=== PATIENT | female | born 1935 | race Caucasian/White ===

== ENCOUNTER → 2016-10-17 13:51 | Outpatient (CLI) | payer MEDICARE, OTHER ==
[2010-12-07 06:17] VITALS: BMI 27.0
== END | disposition home or self-care (01) ==
LOC: D.MAMMO 09:30
DX: Z12.31 Encounter for screening mammogram for malignant neoplasm of breast (principal)

== ENCOUNTER 2017-08-02 19:16 | Inpatient (IN) | payer MEDICARE, OTHER ==
[~2017-08-02] VITALS: Ht 165.1 cm; Wt 75.0 kg
--- NOTE | ~2017-08-02 | EC ---
PATIENT:GIL DAVIS DATE OF SERVICE: 08/02/17 SEX: F MEDICAL RECORD: [id number] DATE OF : [birth year] LOCATION:[facility] AGE OF PATIENT: 81 ADMISSION DATE: 08/02/17 REFERRING PHYSICIAN: INTERPRETING PHYSICIAN: CHARLES KEYS MD ECHOCARDIOGRAM REPORT ECHO CHARGES 4 ECHO COMPLETE Date: 08/03 CLINICAL DIAGNOSIS: CVA HX OF AVR ECHOCARDIOGRAPHIC MEASUREMENTS (adult normal given) AC root (d.<3.7cm) 2.5 cm LV Septum d (<1.2 cm> 1.2 cm Valve Excursion 1.2 cm LV Septum (systole) 1.4 cm Left Atria (s.<4.0cm> 3.1 cm LVPW d(<1.2cm) 1.4 cm RV (d.<2.3cm) 3.1 cm LVPW (sytole) 1.6 cm LV diastole(<5.6CM) 4.2 cm MV E-F(>70mm/sec) cm LV systole 3.1 cm LVOT Diameter 1.5 cm MV exc.(>10mm) cm Est.ejection fraction (50-75%) % DOPPLER: LVIT cm/sec A 116 cm/sec E 79.0 cm/sec LA cm/sec RVSP 28 mmHg LVOT 132 cm/sec AOP1/2T m/s Asc. Ao 222 cm/sec RVOT cm/sec RA cm/sec PA cm/sec AV Gradient Peak 19.79mmHg AV Mean 11.31mmHg AV Area 1.2 cm MV Gradient Peak 6.81 mmHg MV Mean 2.34 mmHg MV Area cm COMMENTS: Tube Dispatcher: 2 CHANDLER CARLOS Hot Roll Inspector: 3 Dr. Mccann TAPE# PACS Pericardial Effusion N DATE OF SERVICE: Adequate 2-D echo, color flow and spectral Doppler, and M-mode. No LVH. LV internal dimensions are normal. Wall motion is normal. EF is greater than or equal to 55%. Prosthetic tissue aortic valve is noted with acceptable Doppler velocity. No significant AI. Left atrium is normal. Mitral valve shows no prolapse. Trace MR. Right-sided chambers grossly normal. Trace TR. TRANSINT:[id number] Voice Confirmation ID: [id number] DOCUMENT ID: [id number] ECHOCARDIOGRAM REPORT [id number] GIL DAVIS,CHARLES Ni MD at 1214 CC: [id number] DICTATION DATE: 08/03/[address] JUDGE: 08/03/17 1653 ADM IN [place] [id number] [place] [address]
[2017-08-02 20:02] LABS: BASOPHILS 0.1 % (0-2); EOSINOPHILS 0.1 % (0-7); HEMATOCRIT 41.7 % (36.0-48.0); HEMOGLOBIN 14.5 g/dL (12-16); IMMATURE GRANULOCYTES 0.3 % (0-5); LYMPHOCYTES 8.7 % (15-50); MCH 31.9 pg (26.0-34.0); MCHC 34.8 g/dL (31.0-37.0); MCV 91.9 fL (80.0-100.0); MONOCYTES 8.4 % (2-11); NEUTROPHILS 82.4 % (40-80); RBC 4.54 10x6/uL (4.00-5.40); RDW 13.3 % (11.5-14.5); WBC 10.1 10x3/uL (4.8-10.8)
[2017-08-02 20:12] LABS: PLATELET COUNT 116 10x3/uL (130-400)
[2017-08-02 20:25] LABS: ALBUMIN 3.5 g/dL (3.4-5.0); ALKALINE PHOSPHATASE 60 U/L (46-116); ALT (SGPT) 48 U/L (10-68); BILIRUBIN - TOTAL 0.58 mg/dL (0.2-1.3); CALC OSMOLALITY 274 mosm/kg (275-300); CALCIUM 10.2 mg/dL (8.5-10.1); CARBON DIOXIDE 25.2 mmol/L (21.0-32.0); CHLORIDE - SERUM 101 mmol/L (98-107); CREATININE - SERUM 0.8 mg/dL (0.6-1.3); POTASSIUM - SERUM 3.5 mmol/L (3.5-5.1); PROTEIN - SERUM 7.5 g/dL (6.4-8.2); SODIUM 136 mmol/L (136-145); UREA NITROGEN 18 mg/dL (7-18); eGFR NON AFRICAN AMERICAN 73 mL/min (90-120)
[2017-08-02 20:28] LABS: GLUCOSE 120 mg/dL (74-106)
[2017-08-02 20:29] LABS: APPEARANCE HAZY (CLEAR); BILIRUBIN NEGATIVE (NEGATIVE); COLOR DK YELLOW (YELLOW); GLUCOSE NEGATIVE (NEGATIVE); KETONE LARGE mg/dL (NEGATIVE); NITRITE NEGATIVE (NEGATIVE); PROTEIN 1+ mg/dL (NEGATIVE); UROBILINOGEN NORMAL (NORMAL)
[2017-08-02 20:42] LABS: RED CELLS - URINE 0-5 /hpf (0-5)
[2017-08-02 20:43] LABS: BACTERIA MANY /hpf (NONE SEEN); EPITHELIAL CELLS 0-5 /hpf (0-5)
[2017-08-02 20:47] LABS: CREATINE KINASE 2254 UL (21-215); TROPONIN-I < 0.017 ng/mL (0.000-0.060)
[2017-08-02 20:48] LABS: CKMB 8.2 U/L (0.0-3.6)
[2017-08-02 20:49] LABS: KETONE - SERUM NEGATIVE (NEGATIVE)
[2017-08-03] MEDS ORDERED: GABAPENTIN100 MG PO (01:29)
[2017-08-03] MEDS ORDERED: MULTIPLE VITAMI1 TA1 PO (01:31)
[2017-08-03] MEDS ORDERED: MYRBETRIQ25 MG PO (01:31)
[2017-08-03 02:14] VITALS: BP 144/68; Ht 165.1 cm; Wt 75.0 kg
[2017-08-03] MEDS ORDERED: VITAMIN D5000 UNIT PO (04:22)
[2017-08-03] MEDS ORDERED: POTASSIUM99 M1 PO (04:22)
[2017-08-03] MEDS ORDERED: VITAMIN C WITH500 M1 PO (04:22)
[2017-08-03] MEDS ORDERED: L-LYSINE500 M1 PO (04:24)
[2017-08-03] MEDS ORDERED: NIASPAN500 MG PO (04:24)
[2017-08-03] MEDS ORDERED: VITAMIN E400 UNI2 PO (04:24)
[2017-08-03] MEDS ORDERED: CO Q-10200 MG PO (04:25)
[2017-08-03] MEDS ORDERED: VITAMIN B-122500 MCG PO (04:25)
[2017-08-03] MEDS ORDERED: FISH OIL 1,0001 CA1 PO (04:25)
[2017-08-03] MEDS ORDERED: BAYER CHEWABLE81 MG PO (04:26)
[2017-08-03 04:30] VITALS: BP 144/88
[2017-08-03 06:20] LABS: BASOPHILS 0.2 % (0-2); EOSINOPHILS 0 % (0-7); HEMATOCRIT 38.3 % (36.0-48.0); HEMOGLOBIN 12.8 g/dL (12-16); IMMATURE GRANULOCYTES 0.2 % (0-5); LYMPHOCYTES 10.6 % (15-50); MCH 31.2 pg (26.0-34.0); MCHC 33.4 g/dL (31.0-37.0); MCV 93.4 fL (80.0-100.0); MEAN PLATELET VOLUME 9.3 fL (7.4-10.4); PLATELET COUNT 112 10x3/uL (130-400); RDW 13.2 % (11.5-14.5); WBC 8.9 10x3/uL (4.8-10.8)
[2017-08-03 06:53] LABS: CALC OSMOLALITY 280 mosm/kg (275-300); CALCIUM 8.8 mg/dL (8.5-10.1); CARBON DIOXIDE 23.3 mmol/L (21.0-32.0); CHLORIDE - SERUM 104 mmol/L (98-107); CKMB 3.8 U/L (0.0-3.6); CREATININE - SERUM 0.7 mg/dL (0.6-1.3); GLUCOSE 100 mg/dL (74-106); POTASSIUM - SERUM 3.6 mmol/L (3.5-5.1); SODIUM 140 mmol/L (136-145); TROPONIN-I < 0.017 ng/mL (0.000-0.060); UREA NITROGEN 17 mg/dL (7-18); eGFR NON AFRICAN AMERICAN 85 mL/min (90-120)
[2017-08-03 07:04] LABS: CREATINE KINASE 1544 UL (21-215)
[2017-08-03 09:52] VITALS: BP 111/51
[2017-08-03 13:31] VITALS: BP 136/67
[2017-08-03 13:31] LABS: CHOL - HDL RATIO 2.3 ratio (2.3-4.1); LDL-HDL RATIO 1.1 ratio (1.5-3.5)
[2017-08-03 18:09] VITALS: BP 147/51
[2017-08-03 21:12] VITALS: BP 139/69
[2017-08-04 04:01] VITALS: BP 123/63
[2017-08-04 07:08] LABS: BASOPHILS 0.3 % (0-2); EOSINOPHILS 0.5 % (0-7); HEMOGLOBIN 12.4 g/dL (12-16); MCH 31.5 pg (26.0-34.0); MCHC 34.4 g/dL (31.0-37.0); MCV 91.4 fL (80.0-100.0); MEAN PLATELET VOLUME 9.3 fL (7.4-10.4); NEUTROPHILS 71.2 % (40-80); PLATELET COUNT 105 10x3/uL (130-400); RBC 3.94 10x6/uL (4.00-5.40); RDW 13.4 % (11.5-14.5); WBC 5.9 10x3/uL (4.8-10.8)
[2017-08-04 07:31] LABS: ALKALINE PHOSPHATASE 47 U/L (46-116); ALT (SGPT) 42 U/L (10-68); BILIRUBIN - TOTAL 0.41 mg/dL (0.2-1.3); CALCIUM 8.7 mg/dL (8.5-10.1); CARBON DIOXIDE 24.2 mmol/L (21.0-32.0); CHLORIDE - SERUM 105 mmol/L (98-107); GLUCOSE 93 mg/dL (74-106); POTASSIUM - SERUM 3.4 mmol/L (3.5-5.1); SODIUM 139 mmol/L (136-145)
[2017-08-04 07:33] LABS: ALBUMIN 2.5 g/dL (3.4-5.0); CALC OSMOLALITY 276 mosm/kg (275-300); CREATININE - SERUM 0.5 mg/dL (0.6-1.3); PROTEIN - SERUM 5.4 g/dL (6.4-8.2); UREA NITROGEN 9 mg/dL (7-18); eGFR NON AFRICAN AMERICAN > 90 mL/min (90-120)
[2017-08-04 08:31] VITALS: BP 149/69
[2017-08-04 12:32] VITALS: BP 127/61
[2017-08-04 16:13] VITALS: BP 138/66
[2017-08-04 22:35] VITALS: BP 137/113
[2017-08-05 05:27] LABS: BASOPHILS 0.4 % (0-2); EOSINOPHILS 3.7 % (0-7); HEMATOCRIT 36.7 % (36.0-48.0); HEMOGLOBIN 12.5 g/dL (12-16); IMMATURE GRANULOCYTES 0.2 % (0-5); MCH 31.1 pg (26.0-34.0); MCHC 34.1 g/dL (31.0-37.0); MCV 91.3 fL (80.0-100.0); MEAN PLATELET VOLUME 9.3 fL (7.4-10.4); MONOCYTES 17.9 % (2-11); NEUTROPHILS 51.8 % (40-80); PLATELET COUNT 120 10x3/uL (130-400); RBC 4.02 10x6/uL (4.00-5.40); RDW 13.4 % (11.5-14.5); WBC 5.2 10x3/uL (4.8-10.8)
[2017-08-05 05:55] LABS: ALBUMIN 2.4 g/dL (3.4-5.0); ALKALINE PHOSPHATASE 50 U/L (46-116); ALT (SGPT) 47 U/L (10-68); CALC OSMOLALITY 281 mosm/kg (275-300); CARBON DIOXIDE 24.9 mmol/L (21.0-32.0); CHLORIDE - SERUM 108 mmol/L (98-107); CREATININE - SERUM 0.5 mg/dL (0.6-1.3); GLUCOSE 102 mg/dL (74-106); POTASSIUM - SERUM 3.4 mmol/L (3.5-5.1); PROTEIN - SERUM 5.8 g/dL (6.4-8.2); SODIUM 142 mmol/L (136-145); UREA NITROGEN 9 mg/dL (7-18); eGFR NON AFRICAN AMERICAN > 90 mL/min (90-120)
[2017-08-05 07:10] VITALS: BP 137/65
[2017-08-05 08:02] VITALS: BP 133/70
[2017-08-05 11:43] LABS: ALBUMIN 2.5 g/dL (3.4-5.0); ALKALINE PHOSPHATASE 49 U/L (46-116); ALT (SGPT) 50 U/L (10-68); CALC OSMOLALITY 277 mosm/kg (275-300); CALCIUM 8.8 mg/dL (8.5-10.1); CARBON DIOXIDE 27.1 mmol/L (21.0-32.0); CHLORIDE - SERUM 105 mmol/L (98-107); CREATININE - SERUM 0.5 mg/dL (0.6-1.3); GLUCOSE 111 mg/dL (74-106); POTASSIUM - SERUM 3.9 mmol/L (3.5-5.1); PROTEIN - SERUM 5.5 g/dL (6.4-8.2); SODIUM 139 mmol/L (136-145); UREA NITROGEN 10 mg/dL (7-18); eGFR NON AFRICAN AMERICAN > 90 mL/min (90-120)
[2017-08-05 12:14] VITALS: BP 132/64
[2017-08-05 15:42] VITALS: BP 132/70
[2017-08-05 20:43] VITALS: BP 128/66
[2017-08-06 00:10] VITALS: BP 131/75
[2017-08-06 05:12] VITALS: BP 140/75
[2017-08-06 06:07] LABS: BASOPHILS 0.3 % (0-2); EOSINOPHILS 4.2 % (0-7); HEMATOCRIT 36.3 % (36.0-48.0); HEMOGLOBIN 12.4 g/dL (12-16); IMMATURE GRANULOCYTES 0.1 % (0-5); LYMPHOCYTES 19.3 % (15-50); MCH 31.2 pg (26.0-34.0); MCHC 34.2 g/dL (31.0-37.0); MCV 91.2 fL (80.0-100.0); MONOCYTES 18.3 % (2-11); NEUTROPHILS 57.8 % (40-80); PLATELET COUNT 137 10x3/uL (130-400); RBC 3.98 10x6/uL (4.00-5.40); RDW 13.6 % (11.5-14.5)
[2017-08-06 06:11] LABS: WBC 6.7 10x3/uL (4.8-10.8)
[2017-08-06 06:33] LABS: ALBUMIN 2.4 g/dL (3.4-5.0); ALKALINE PHOSPHATASE 51 U/L (46-116); ALT (SGPT) 44 U/L (10-68); CALC OSMOLALITY 278 mosm/kg (275-300); CALCIUM 9.2 mg/dL (8.5-10.1); CARBON DIOXIDE 26.5 mmol/L (21.0-32.0); CHLORIDE - SERUM 107 mmol/L (98-107); CREATININE - SERUM 0.6 mg/dL (0.6-1.3); GLUCOSE 110 mg/dL (74-106); PROTEIN - SERUM 5.8 g/dL (6.4-8.2); SODIUM 140 mmol/L (136-145); UREA NITROGEN 11 mg/dL (7-18); eGFR NON AFRICAN AMERICAN > 90 mL/min (90-120)
[2017-08-06 09:49] VITALS: BP 122/47
[2017-08-06 14:56] VITALS: BP 138/65
[2017-08-06 17:32] VITALS: BP 163/61
[2017-08-06 20:38] VITALS: BP 136/52
[2017-08-07 04:06] VITALS: BP 147/66
[2017-08-07 06:06] LABS: BASOPHILS 0.3 % (0-2); EOSINOPHILS 5.5 % (0-7); HEMATOCRIT 37.4 % (36.0-48.0); HEMOGLOBIN 12.7 g/dL (12-16); IMMATURE GRANULOCYTES 0.3 % (0-5); LYMPHOCYTES 25.6 % (15-50); MCH 31.1 pg (26.0-34.0); MCV 91.4 fL (80.0-100.0); MEAN PLATELET VOLUME 9.1 fL (7.4-10.4); MONOCYTES 14.9 % (2-11); NEUTROPHILS 53.4 % (40-80); PLATELET COUNT 163 10x3/uL (130-400); RBC 4.09 10x6/uL (4.00-5.40); RDW 13.3 % (11.5-14.5); WBC 6.2 10x3/uL (4.8-10.8)
[2017-08-07 06:44] LABS: ALBUMIN 2.5 g/dL (3.4-5.0); ALKALINE PHOSPHATASE 54 U/L (46-116); ALT (SGPT) 42 U/L (10-68); CALC OSMOLALITY 280 mosm/kg (275-300); CALCIUM 9.5 mg/dL (8.5-10.1); CHLORIDE - SERUM 107 mmol/L (98-107); CREATININE - SERUM 0.6 mg/dL (0.6-1.3); GLUCOSE 107 mg/dL (74-106); POTASSIUM - SERUM 3.8 mmol/L (3.5-5.1); PROTEIN - SERUM 6.1 g/dL (6.4-8.2); SODIUM 141 mmol/L (136-145); UREA NITROGEN 12 mg/dL (7-18); eGFR NON AFRICAN AMERICAN > 90 mL/min (90-120)
[2017-08-07 09:02] VITALS: BP 130/56
[2017-08-07 13:15] VITALS: BP 125/63
[2017-08-07 17:08] VITALS: BP 117/62
== END 2017-08-07 20:00 | DRG 65 ==
LOC: D.ER 19:16 → D.MS 23:57
PROVIDERS: Emergency Medicine; Family Medicine; Internal Medicine Nephrology
DX: I63.9 Cerebral infarction, unspecified (principal); N39.0 Urinary tract infection, site not specified; M48.54XA Collapsed vertebra, not elsewhere classified, thoracic region, initial encounter for fracture; I25.10 Atherosclerotic heart disease of native coronary artery without angina pectoris; E78.5 Hyperlipidemia, unspecified; F41.9 Anxiety disorder, unspecified; G89.29 Other chronic pain; M54.9 Dorsalgia, unspecified; R29.6 Repeated falls; M81.0 Age-related osteoporosis without current pathological fracture; I07.1 Rheumatic tricuspid insufficiency

== ENCOUNTER 2017-08-07 14:44 | Inpatient (IN) | payer MEDICARE, OTHER ==
[~2017-08-07] VITALS: Ht 165.1 cm; Wt 76.2 kg
--- NOTE | ~2017-08-07 | RHP ---
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 HISTORY OF PRESENT ILLNESS: The patient is a 81-year-old female patient with an ischemic CVA right hemispheric lesion. She admitted from the ER on 08/02/2017 when she presented with history of weakness of the lower extremity and falling. She had fallen on the floor several times at home and had to call the neighbor to get her up. She had no precipitating event. She denied headaches, syncope, dizziness, chest pain, palpitation, dyspnea, cough, phlegm, nausea, vomiting, fever or chills. No genitourinary complaints. No change in her bowel habits. She has been on a detailed diet for 2 weeks and no carbohydrates. She has also been drinking lots of water. CT of her head showed ischemia in large portion of the right-sided cerebral hemisphere. She was admitted with CVA. She had a past medical history of hyperlipidemia, aortic stenosis. She has had a valve replacement, colonic polyps, urinary incontinence, chronic back pain, osteoporosis, vitamin D deficiency. She was independent with ADLs and mobility without aid. She lives alone in [place] and drove to and from all of her appointments. Currently, she is moderate to max assist with ADLs and mobility. She has weakness in both of her lower extremities, has poor balance without academic affairs assistant. She wants to return home at her prior level of functioning or better if possible. Comorbidities in this patient include UTI. She has had a history of compression fractures. She has a history of hypokalemia, lower extremity edema, generalized weakness, coronary artery disease, hyperlipidemia, osteoporosis, anxiety, depression. PAST MEDICAL HISTORY: Significant for hyperlipidemia, aortic stenosis, colon polyps, urinary incontinence, chronic pain, osteoporosis, vitamin D deficiency, and anxiety. PAST SURGICAL HISTORY: Includes cholecystectomy, coronary artery bypass grafting, hysterectomy, valve replacement. She has had a bladder repair. She broke her jaw. Percutaneous kyphoplasty, tonsillectomy and spine drainage by Dr. Hurtado of a cyst. ALLERGIES: No known drug allergies. MEDICATIONS: Current medications include vitamin E daily. She is on potassium 99 mg daily, multivitamin daily, omega-3 daily, B12 2500 mcg daily, ascorbic acid 500 mg daily, vitamin D 5000 units daily, aspirin 162 mg daily, niacin 500 mg at bedtime, Neurontin 100 mg t.i.d. and polyethylene glycol 17 grams in 8 ounces of water daily. HABITS: No alcohol or tobacco use. HISTORY AND PHYSICAL [id number] GIL DAVIS FAMILY HISTORY: Noncontributory. SOCIAL HISTORY: The patient hopes to return back home and get back to her prior level of functioning. REVIEW OF SYSTEMS: GENERAL: Does complain of weakness and fatigue. HEENT: Denies cold, cough, or congestion. CARDIOVASCULAR: Denies chest pain. PHYSICAL EXAMINATION: VITAL SIGNS: Stable, afebrile. GENERAL: Elderly female, in no acute distress, alert upon exam. HEENT: Normocephalic and atraumatic. Mucosa moist. NECK: Supple. No lymphadenopathy. LUNGS: Clear at this time. HEART: Regular rate and rhythm. She does have a murmur. ABDOMEN: Benign. EXTREMITIES: No clubbing, cyanosis or edema. NEUROLOGIC: She does have noted weakness on the right and on the left consistent with a right hemispheric CVA. LABORATORY DATA: Admit white count of 7.7, H&H of 13 and 38, and platelet count was noted to be 179. Her sodium is 143, potassium 4.2, BUN and creatinine of 12 and 0.6 and blood sugar is noted to be 108. ASSESSMENT: This is a 81-year-old female patient admitted to the rehab with a working diagnosis of CVA involving the left side of her body. The patient has potential to make improvement. We instituted the following multidisciplinary therapies include, but not limited to physical, occupational, respiratory, speech, nutritional services, prosthetics and orthotics. Given her complex medical condition and risk for more complications, rehabilitation services cannot be provided at a lower level of care such a skilled nurse facility. PLAN: 1. Admit to [facility] rehab for intensive inpatient therapy to include the following disciplines: A. Physical therapy to improve gait, all transfer skills and bed mobility to a modified independent level. B. Occupational therapy to improve activities of daily living to a modified independent level. C. Case management to assist with discharge planning and placement options. D. Nutrition to assist with nutritional needs. E. Rehabilitation nursing to assist in monitoring the patient's underlying medical conditions and to assist with any type bowel or bladder management. 2. The patient's current medication and medical care will be continued. 3. The patient will be placed on standard fall precautions. 4. The patient's estimated length of stay is approximately 7-10 days. 5. I am going to go ahead and check vitamin D levels on her and I will treat this appropriately. TRANSINT:[id number] Voice Confirmation ID: [id number] DOCUMENT ID: [id number] ARAMIS notes whether there has been none or any medical/functional HISTORY AND PHYSICAL [id number] GIL DAVIS change since admission: - No change since prescreen. ARAMIS attests patient continues to be appropriate for IRF: - Continues to be appropriate. MABLE TORRES MD at 1315 CC: [id number] DICTATION DATE: 08/08/17 0844 STUDIO ENGINEER: 08/08/17 0955 ADM IN [facility] [address] [place] [address]
[~2017-08-07 14:44] MED LIST: BAYER CHEWABLE81 MG PO; CO Q-10200 MG PO; FISH OIL 1,0001 CA1 PO; GABAPENTIN100 MG PO; L-LYSINE500 M1 PO; MULTIPLE VITAMI1 TA1 PO; MYRBETRIQ25 MG PO; NIASPAN500 MG PO; POTASSIUM99 M1 PO; VITAMIN B-122500 MCG PO; VITAMIN C WITH500 M1 PO; VITAMIN D5000 UNIT PO; VITAMIN E400 UNI2 PO
[2017-08-07 20:17] VITALS: BP 117/62; BMI 27.9
[2017-08-08 07:31] LABS: BASOPHILS 0.4 % (0-2); EOSINOPHILS 4.2 % (0-7); HEMATOCRIT 38.5 % (36.0-48.0); IMMATURE GRANULOCYTES 0.7 % (0-5); MCH 31.3 pg (26.0-34.0); MCHC 33.8 g/dL (31.0-37.0); MCV 92.5 fL (80.0-100.0); MEAN PLATELET VOLUME 8.8 fL (7.4-10.4); NEUTROPHILS 48.7 % (40-80); PLATELET COUNT 179 10x3/uL (130-400); RBC 4.16 10x6/uL (4.00-5.40); RDW 13.4 % (11.5-14.5); WBC 7.7 10x3/uL (4.8-10.8)
[2017-08-08 07:41] LABS: CALC OSMOLALITY 285 mosm/kg (275-300); CALCIUM 9.6 mg/dL (8.5-10.1); CARBON DIOXIDE 30.8 mmol/L (21.0-32.0); CHLORIDE - SERUM 106 mmol/L (98-107); CREATININE - SERUM 0.6 mg/dL (0.6-1.3); GLUCOSE 108 mg/dL (74-106); POTASSIUM - SERUM 4.2 mmol/L (3.5-5.1); SODIUM 143 mmol/L (136-145); UREA NITROGEN 12 mg/dL (7-18); eGFR NON AFRICAN AMERICAN > 90 mL/min (90-120)
[2017-08-08 08:20] VITALS: BP 127/61
[2017-08-08 11:48] VITALS: Ht 165.1 cm; Wt 76.2 kg
[2017-08-08 19:00] VITALS: BP 120/53
[2017-08-09 07:59] VITALS: BP 113/60
[2017-08-09 19:00] VITALS: BP 116/47
[2017-08-10 06:31] LABS: CALC OSMOLALITY 281 mosm/kg (275-300); CALCIUM 9.5 mg/dL (8.5-10.1); CHLORIDE - SERUM 107 mmol/L (98-107); CREATININE - SERUM 0.7 mg/dL (0.6-1.3); GLUCOSE 114 mg/dL (74-106); POTASSIUM - SERUM 4.1 mmol/L (3.5-5.1); SODIUM 141 mmol/L (136-145); UREA NITROGEN 13 mg/dL (7-18); eGFR NON AFRICAN AMERICAN 85 mL/min (90-120)
[2017-08-10 07:16] LABS: BASOPHILS 0.5 % (0-2); EOSINOPHILS 5.6 % (0-7); HEMATOCRIT 39.1 % (36.0-48.0); HEMOGLOBIN 12.9 g/dL (12-16); IMMATURE GRANULOCYTES 1.1 % (0-5); LYMPHOCYTES 40.6 % (15-50); MCH 30.8 pg (26.0-34.0); MCV 93.3 fL (80.0-100.0); MONOCYTES 9.1 % (2-11); NEUTROPHILS 43.1 % (40-80); PLATELET COUNT 261 10x3/uL (130-400); RBC 4.19 10x6/uL (4.00-5.40); RDW 13.5 % (11.5-14.5); WBC 6.3 10x3/uL (4.8-10.8)
[2017-08-10 08:36] VITALS: BP 117/56
[2017-08-10 19:00] VITALS: BP 120/56
[2017-08-11 12:07] VITALS: BP 110/58
[2017-08-11 19:15] VITALS: BP 111/57
[2017-08-12 07:58] VITALS: BP 125/67
[2017-08-12 20:40] VITALS: BP 106/51
[2017-08-13 05:22] LABS: BASOPHILS 0.5 % (0-2); EOSINOPHILS 3.9 % (0-7); HEMATOCRIT 37.4 % (36.0-48.0); HEMOGLOBIN 12.2 g/dL (12-16); IMMATURE GRANULOCYTES 0.5 % (0-5); LYMPHOCYTES 37.8 % (15-50); MCH 30.8 pg (26.0-34.0); MCHC 32.6 g/dL (31.0-37.0); MCV 94.4 fL (80.0-100.0); MEAN PLATELET VOLUME 8.5 fL (7.4-10.4); MONOCYTES 8.4 % (2-11); NEUTROPHILS 48.9 % (40-80); PLATELET COUNT 216 10x3/uL (130-400); RBC 3.96 10x6/uL (4.00-5.40); RDW 13.5 % (11.5-14.5); WBC 6.4 10x3/uL (4.8-10.8)
[2017-08-13 05:36] LABS: CALC OSMOLALITY 283 mosm/kg (275-300); CALCIUM 9.4 mg/dL (8.5-10.1); CARBON DIOXIDE 29.7 mmol/L (21.0-32.0); CHLORIDE - SERUM 106 mmol/L (98-107); CREATININE - SERUM 0.6 mg/dL (0.6-1.3); GLUCOSE 119 mg/dL (74-106); POTASSIUM - SERUM 4.3 mmol/L (3.5-5.1); SODIUM 141 mmol/L (136-145); UREA NITROGEN 18 mg/dL (7-18); eGFR NON AFRICAN AMERICAN > 90 mL/min (90-120)
[2017-08-13 07:45] VITALS: BP 124/64
[2017-08-13 19:00] VITALS: BP 117/51
[2017-08-14 08:05] VITALS: BP 124/56
[2017-08-14 19:00] VITALS: BP 123/55
[2017-08-15 07:30] LABS: BASOPHILS 0.5 % (0-2); EOSINOPHILS 3.8 % (0-7); HEMATOCRIT 41.9 % (36.0-48.0); IMMATURE GRANULOCYTES 0.3 % (0-5); LYMPHOCYTES 36.9 % (15-50); MCH 31.6 pg (26.0-34.0); MCHC 33.4 g/dL (31.0-37.0); MCV 94.6 fL (80.0-100.0); NEUTROPHILS 50.5 % (40-80); PLATELET COUNT 254 10x3/uL (130-400); RBC 4.43 10x6/uL (4.00-5.40); RDW 13.6 % (11.5-14.5); WBC 6.6 10x3/uL (4.8-10.8)
[2017-08-15 07:52] LABS: CALC OSMOLALITY 281 mosm/kg (275-300); CARBON DIOXIDE 28.6 mmol/L (21.0-32.0); CHLORIDE - SERUM 106 mmol/L (98-107); CREATININE - SERUM 0.7 mg/dL (0.6-1.3); GLUCOSE 101 mg/dL (74-106); SODIUM 141 mmol/L (136-145); UREA NITROGEN 16 mg/dL (7-18); eGFR NON AFRICAN AMERICAN 85 mL/min (90-120)
[2017-08-15 08:21] VITALS: BP 119/62
[2017-08-15 19:05] VITALS: BP 122/50
[2017-08-16 07:33] VITALS: BP 120/53
== END 2017-08-16 16:25 | disposition home health service (06) | DRG 57 ==
LOC: D.REHAB 14:44
PROVIDERS: Emergency Medicine
DX: I69.354 Hemiplegia and hemiparesis following cerebral infarction affecting left non-dominant side (principal); N39.0 Urinary tract infection, site not specified; R53.1 Weakness; W19.XXXD Unspecified fall, subsequent encounter; E78.5 Hyperlipidemia, unspecified; R60.0 Localized edema; I25.10 Atherosclerotic heart disease of native coronary artery without angina pectoris; M81.0 Age-related osteoporosis without current pathological fracture; F41.8 Other specified anxiety disorders; Z91.81 History of falling; M41.84 Other forms of scoliosis, thoracic region; M51.36 Other intervertebral disc degeneration, lumbar region; E87.6 Hypokalemia; E55.9 Vitamin D deficiency, unspecified

== ENCOUNTER → 2020-09-23 20:31 | Outpatient (CLI) | payer MEDICARE, OTHER ==
[2017-08-08 11:48] VITALS: BMI 27.9
== END | disposition home or self-care (01) ==
LOC: D.LABREF 20:31
PROVIDERS: ATTEND Orthopaedic Surgery
DX: M16.12 Unilateral primary osteoarthritis, left hip (principal)